=== PATIENT | female | born 1965 | race Caucasian/White ===

== ENCOUNTER 2024-04-10 04:03 | Inpatient (IN) | payer OTHER ==
[2024-04-10] MEDS ORDERED: FAMOTIDINE 20 MG/50 ML IVPB 20 MG/50 ML MG IVPB ONE (04:28)
[2024-04-10] MEDS ORDERED: MAG HYDROX/AL HYDROX/SIMETH 30 ML UNIT-DOSE CUP ONE (04:28)
[2024-04-10] MEDS ORDERED: ACETAMINOPHEN INJECTION 100 ML ONE ×2 (04:28→11:39)
[2024-04-10 04:45] VITALS: BMI 24.3
[2024-04-10] MEDS: FAMOTIDINE 20 MG/50 ML IVPB 20 MG in PREMIX 50 IVPB ONE (04:45)
[2024-04-10] MEDS: SODIUM CHLORIDE 0.9% 500 ML INFUS.BAG IV ONE (04:45)
[2024-04-10] MEDS: ACETAMINOPHEN 1000 MG/100 ML BAG IVPB ONE (04:45)
[2024-04-10] MEDS: MAG HYDROX/AL HYDROX/SIMETH -MYLANTA- ORAL SUSPENSION PO ONE (04:46)
[2024-04-10 05:49] LABS: BASO % 0.3 % (0-2.0); EOS % 0.1 % (0-4.5); HEMATOCRIT 39.1 % (32.4-45.2); HEMOGLOBIN 12.8 GM/dL (10.7-15.3); LYMPH % 8.6 % (8-40); MCH 27.4 pg (25.7-33.7); MCHC 32.7 g/dl (32.0-36.0); MEAN CELL VOLUME 83.7 fl (80-96); MEAN PLT VOLUME 8.1 fl (7.5-11.1); MONO % 6.9 % (3.8-10.2); NEUT % 84.1 % (42.8-82.8); PLATELET COUNT 244 10^3/uL (134-434); RBC 4.67 M/mm3 (3.60-5.2); RDW 14.7 % (11.6-15.6); WHITE BLOOD COUNT 14.8 K/mm3 (4.0-10.0)
[2024-04-10 06:11] LABS: POTASSIUM 3.7 mmol/L (3.5-5.1)
[2024-04-10 06:13] LABS: ALBUMIN 4.3 g/dl (3.4-5.0); BLOOD UREA NITROGEN 14.2 mg/dL (7-18); CALCIUM 9.2 mg/dL (8.5-10.1)
[2024-04-10 06:16] LABS: CREATININE 0.7 mg/dL (0.55-1.3)
[2024-04-10 06:18] LABS: BILIRUBIN,TOTAL 0.6 mg/dL (0.2-1); TOT PROT 7.1 g/dl (6.4-8.2)
[2024-04-10] MEDS ORDERED: PIPERACILLIN/TAZOBACTAM 4.5 GM VIAL IVPB ONE (07:19)
[2024-04-10] MEDS: PIPERACILLIN/TAZOB 4.5 GM 4.5 GM in DEXTROSE 5%-WATER 100 ML IVPB ONE (07:26)
[2024-04-10] MEDS: morphine CARPU-JECT 4 MG/1 ML DISP.SYRIN IVPUSH ONE (07:27)
[2024-04-10] MEDS ORDERED: morphine SULFATE 4 MG/ML VIAL ONE (07:28)
[2024-04-10] MEDS ORDERED: ONDANSETRON 4 MG/2 ML VIAL ONE ×2 (07:45→11:31)
[2024-04-10] MEDS: ONDANSETRON 4 MG/2 ML VIAL IVPUSH ONE (08:04)
[2024-04-10] MEDS ORDERED: SCOPOLAMINE HYDROBROMIDE 1 PATCH PATCH.TD72 ONE (11:07)
[2024-04-10] MEDS ORDERED: ONDANSETRON 4 MG/2 ML VIAL IVPUSH PRN ×2 (11:08→12:57)
[2024-04-10] MEDS ORDERED: PROMETHAZINE HCL 25 MG/1 ML VIAL IVPB PRN ×2 (11:08→12:57)
[2024-04-10] MEDS ORDERED: MIDAZOLAM HCL 2 MG/2 ML SINGLE DOSE VIAL ONE (11:13)
[2024-04-10] MEDS ORDERED: ROCURONIUM BROMIDE 50 MG/5 ML SYRINGE ONE (11:13)
[2024-04-10] MEDS ORDERED: PROPOFOL 20 ML ONE (11:13)
[2024-04-10] MEDS ORDERED: BUPIVACAINE HCL/PF 0.5% (5MG/ML) 10 ML VIAL ONE (11:25)
[2024-04-10] MEDS ORDERED: DEXAMETHASONE SOD PHOSPHATE 4 MG/1 ML VIAL ONE (11:31)
[2024-04-10] MEDS ORDERED: METOCLOPRAMIDE HCL INJECTION 10 MG/2 ML VIAL ONE (11:31)
[2024-04-10] MEDS: BUPIVACAINE HCL/PF 0.5% (5 MG/ML) 30 ML VIAL IJ ONE ×2 (11:42)
[2024-04-10] MEDS ORDERED: SUGAMMADEX SODIUM 200 MG/2 ML VIAL ONE (11:59)
[2024-04-10 12:32] VITALS: RESP 18
[2024-04-10] MEDS: LACTATED RINGERS SOLUTION 1,000 ML IV SCH ×2 (12:32→12:59)
[2024-04-10] MEDS: ACETAMINOPHEN 1000 MG/100 ML BAG IVPB PRN (14:05)
[2024-04-10] MEDS: ONDANSETRON 4 MG/2 ML VIAL IVPUSH PRN (15:19)
[2024-04-11 14:15] VITALS: BP 103/69; PULSE 76; TEMP 99.5
== END 2024-04-11 15:36 | disposition home or self-care (01) | DRG 399 ==
LOC: FER 04:03 → J2C 07:33 → J6S 13:44
PROVIDERS: ADMIT Family Medicine; ATTEND Family Medicine
PROC: 0DTJ4ZZ Resection of Appendix, Percutaneous Endoscopic Approach (ICD-10-PCS; principal; 2024-04-10 11:30)
DX: K35.80 Unspecified acute appendicitis (principal)
CPT/HCPCS: 36415; 74177-TC; 80053; 81003; 83690; 85025; 88304-TC; 94760; 99285-25; J0131; Q9967

== ENCOUNTER 2024-04-23 21:47 | Observation (INO) | payer OTHER ==
[2024-04-23 21:53] VITALS: BMI 24.0
[2024-04-23] MEDS ORDERED: ACETAMINOPHEN INJECTION 100 ML ONE (22:56)
[2024-04-23 22:58] LABS: BASO % 0.4 % (0-2.0); EOS % 1.6 % (0-4.5); HEMATOCRIT 35.3 % (32.4-45.2); HEMOGLOBIN 11.6 GM/dL (10.7-15.3); MCH 27.3 pg (25.7-33.7); MCHC 32.8 g/dl (32.0-36.0); MEAN CELL VOLUME 83.4 fl (80-96); MEAN PLT VOLUME 6.6 fl (7.5-11.1); MONO % 5.8 % (3.8-10.2); NEUT % 72.2 % (42.8-82.8); PLATELET COUNT 435 10^3/uL (134-434); RBC 4.23 M/mm3 (3.60-5.2); RDW 14.5 % (11.6-15.6); WHITE BLOOD COUNT 11.2 K/mm3 (4.0-10.0)
[2024-04-23] MEDS ORDERED: morphine SULFATE 4 MG/ML VIAL ONE (22:59)
[2024-04-23] MEDS: ONDANSETRON 4 MG/2 ML VIAL IVPUSH ONE (23:00)
[2024-04-23] MEDS: morphine SULFATE 4 MG/ML VIAL IVPUSH ONE (23:06)
[2024-04-23] MEDS ORDERED: ONDANSETRON 4 MG/2 ML VIAL ONE (23:06)
[2024-04-23 23:25] LABS: CHLORIDE 105 mmol/L (98-107); POTASSIUM 3.9 mmol/L (3.5-5.1); SODIUM 141 mmol/L (136-145)
[2024-04-23 23:26] LABS: CALCIUM 9.4 mg/dL (8.5-10.1)
[2024-04-23 23:27] LABS: ALBUMIN 3.4 g/dl (3.4-5.0); ANION GAP 8 mmol/L (4-13); BLOOD UREA NITROGEN 20.8 mg/dL (7-18); CO2 28 mmol/L (21-32); GLUCOSE,RANDOM 97 mg/dL (74-106)
[2024-04-23 23:30] LABS: CREATININE 0.6 mg/dL (0.55-1.3); SGOT/AST 12 U/L (15-37); SGPT/ALT 23 U/L (13-61)
[2024-04-23 23:33] LABS: ALK PHOS 67 U/L (45-117); TOT PROT 6.6 g/dl (6.4-8.2)
[2024-04-23 23:43] LABS: ANISOCYTOSIS 3+; MACROCYTOSIS 0
[2024-04-24 00:10] LABS: BILIRUBIN,TOTAL < 0.1 mg/dL (0.2-1)
[2024-04-24] MEDS ORDERED: CLINDAMYCIN IVPB 300 MG in DEXTROSE 5%-WATER - 48 ML IVPB ONE (02:02)
[2024-04-24] MEDS ORDERED: morphine SULFATE 4 MG/ML VIAL ONE (02:07)
[2024-04-24] MEDS: morphine CARPU-JECT 4 MG/1 ML DISP.SYRIN IVPUSH ONE (02:13)
[2024-04-24] MEDS ORDERED: ACETAMINOPHEN INJECTION 100 ML ONE (02:17)
[2024-04-24] MEDS: ACETAMINOPHEN 1000 MG/100 ML BAG IVPB ONE ×2 (02:20→07:01)
[2024-04-24] MEDS: CLINDAMYCIN 300 MG PREMIX IVPB 300 MG/50 ML BAG IVPB ONE (03:03)
[2024-04-24] MEDS ORDERED: LIDOCAINE HCL 2% (20ML MULTI-DOSE VIAL) ONE (03:13)
[2024-04-24] MEDS ORDERED: NALOXONE HCL 0.4 MG/ML VIAL IVPUSH ONE (03:57)
[2024-04-24] MEDS: DEXTROSE 5%-0.45% SALINE 1,000 ML IV SCH (05:44)
[2024-04-24 06:28] LABS: BASO % 0.3 % (0-2.0); EOS % 1.8 % (0-4.5); HEMOGLOBIN 10.8 GM/dL (10.7-15.3); LYMPH % 24.4 % (8-40); MCH 27.6 pg (25.7-33.7); MCHC 32.8 g/dl (32.0-36.0); MEAN CELL VOLUME 83.9 fl (80-96); MEAN PLT VOLUME 6.5 fl (7.5-11.1); MONO % 6.5 % (3.8-10.2); PLATELET COUNT 397 10^3/uL (134-434); RBC 3.94 M/mm3 (3.60-5.2); RDW 14.4 % (11.6-15.6); WHITE BLOOD COUNT 8.9 K/mm3 (4.0-10.0)
[2024-04-24 06:48] LABS: CALCIUM 8.8 mg/dL (8.5-10.1); POTASSIUM 4.1 mmol/L (3.5-5.1)
[2024-04-24 06:49] LABS: BLOOD UREA NITROGEN 16.8 mg/dL (7-18)
[2024-04-24 06:52] LABS: CREATININE 0.6 mg/dL (0.55-1.3)
[2024-04-24] MEDS: CLINDAMYCIN 600MG PREMIX IVPB 600 MG/50 ML BAG IVPB SCH (09:12)
[2024-04-24] MEDS: ACETAMINOPHEN 1000 MG/100 ML BAG IVPB PRN (09:13)
[2024-04-24] MEDS: DOCUSATE SODIUM 100 MG CAPSULE (FP) PO SCH (09:13)
[2024-04-24] MEDS ORDERED: KETOROLAC TROMETHAMINE 30 MG/1 ML VIAL IVPUSH PRN (09:56)
[2024-04-24] MEDS ORDERED: HYDROmorphone HCl 2 MG/ML VIAL IVPUSH PRN ×2 (10:33→10:35)
[2024-04-24] MEDS ORDERED: LIDOCAINE HCL 1%, 10 MG/ML (20ML VIAL) ONE (10:45)
[2024-04-24] MEDS: ONDANSETRON *ODT* 4 MG TABLET SL PRN (12:26)
[2024-04-24] MEDS: ONDANSETRON 4 MG/2 ML VIAL IVPUSH ONE ×2 (12:40→13:51)
[2024-04-24 14:25] VITALS: BP 127/66; PULSE 70; RESP 18; TEMP 98.2
[2024-04-24] MEDS: LIDOCAINE HCL 1%, 10 MG/ML (50 mL VIAL) SQ ONE (15:09)
== END 2024-04-24 16:55 | disposition home or self-care (01) ==
LOC: JER 21:47 → JERBED 04-24 04:40 → J8W 04-24 06:38
PROVIDERS: ADMIT Family Medicine; ATTEND Family Medicine
PROC: 0H97XZX Drainage of Abdomen Skin, External Approach, Diagnostic (ICD-10-PCS; principal; 2024-04-24)
PROC: 3E03329 Introduction of Other Anti-infective into Peripheral Vein, Percutaneous Approach (ICD-10-PCS; 2024-04-24)
PROC: 3E033NZ Introduction of Analgesics, Hypnotics, Sedatives into Peripheral Vein, Percutaneous Approach (ICD-10-PCS; 2024-04-24)
PROC: 3E033GC Introduction of Other Therapeutic Substance into Peripheral Vein, Percutaneous Approach (ICD-10-PCS; 2024-04-24)
DX: T81.49XA Infection following a procedure, other surgical site, initial encounter (principal); L02.211 Cutaneous abscess of abdominal wall; Z87.442 Personal history of urinary calculi; X58.XXXA Exposure to other specified factors, initial encounter; F17.200 Nicotine dependence, unspecified, uncomplicated; Z88.5 Allergy status to narcotic agent; Z88.8 Allergy status to other drugs, medicaments and biological substances
CPT/HCPCS: 36415; 74177-TC; 80048; 80053; 85025; 87040; 87070; 87186; 87205; 99285-25; G0378; J0131; Q0162; Q9967